=== PATIENT | male | born 1960 | race Caucasian/White ===

== ENCOUNTER → 2017-05-30 | Outpatient (CLI) | payer OTHER ==
[~2017-05-30] MED LIST: AMLO5TAB2 PO; ASPI-496 PO; ATOR40TA78 PO; CARV6.2512 PO; CARV6.252 PO; EZET10TA18 PO; GLUC1CAP48 PO; LOSA50TA6 PO; METF500T4 PO; MULT-412 PO; NAPR500T4 PO; NIAC250T7 PO; OMEP-110 PO; OMEP40CA6 PO; PHEN30CA3 PO; RIVA20TA PO; TICA90TA PO; [UNRECOGNIZED DRUG - OTHER] PO
== END ==
LOC: CVU 14:34
PROVIDERS: ATTEND Internal Medicine Cardiovascular Disease
DX: I08.3 Combined rheumatic disorders of mitral, aortic and tricuspid valves (principal); I10 Essential (primary) hypertension; I25.10 Atherosclerotic heart disease of native coronary artery without angina pectoris; Z95.0 Presence of cardiac pacemaker
CPT/HCPCS: 93306

== ENCOUNTER → 2017-08-29 | Outpatient (CLI) | payer OTHER ==
[~2017-08-29] MED LIST changes: +NAPR-685 PO; -NAPR500T4 PO; +REGADENOSON 0.4 MG/5 ML SYRINGE ONE
== END ==
LOC: RAD 07:22
PROVIDERS: ATTEND Internal Medicine Cardiovascular Disease
DX: I25.5 Ischemic cardiomyopathy (principal); I25.10 Atherosclerotic heart disease of native coronary artery without angina pectoris; I48.0 Paroxysmal atrial fibrillation
CPT/HCPCS: 78452; 93017; A9502; J2785

== ENCOUNTER 2019-04-18 05:40 | Day surgery (SDC) | payer OTHER ==
[~2019-04-18] VITALS: Ht 185.4 cm; Wt 147.7 kg
[~2019-04-18 05:40] MED LIST changes: +AMLO-150 PO; -AMLO5TAB2 PO; -EZET10TA18 PO; +EZET10TA70 PO; +LOSA50TA14 PO; -LOSA50TA6 PO; +METF500T17 PO; -METF500T4 PO; +OMEP40CA42 PO; -OMEP40CA6 PO; -REGADENOSON 0.4 MG/5 ML SYRINGE ONE
[2019-04-18] MEDS ORDERED: SODIUM CHLORIDE 0.9% 500 ML IV PRN (06:14)
[2019-04-18 06:23] VITALS: BP 116/72
[2019-04-18] MEDS ORDERED: CARV12.52 PO (06:37)
[2019-04-18] MEDS ORDERED: MULT-658 PO (06:42)
[2019-04-18] MEDS ORDERED: FEXO1TAB25 PO (06:42)
[2019-04-18] MEDS ORDERED: TRAM50TA2 PO (06:42)
[2019-04-18 07:04] LABS: ANION GAP 5 mmol/L (5-15); CALCIUM 8.9 mg/dL (8.5-10.1); CHLORIDE 109 mmol/L (98-107)
[2019-04-18] MEDS ORDERED: PROPOFOL 10 MG/ML, 20ML ONE (07:54)
== END 2019-04-18 13:16 | disposition home or self-care (01) ==
LOC: CACL 05:40
PROVIDERS: ATTEND Internal Medicine Cardiovascular Disease
DX: I48.91 Unspecified atrial fibrillation (principal); I48.0 Paroxysmal atrial fibrillation; E11.9 Type 2 diabetes mellitus without complications; I10 Essential (primary) hypertension; I25.10 Atherosclerotic heart disease of native coronary artery without angina pectoris; E78.2 Mixed hyperlipidemia; I49.5 Sick sinus syndrome; E66.01 Morbid (severe) obesity due to excess calories; Z68.41 Body mass index [BMI] 40.0-44.9, adult; Z79.82 Long term (current) use of aspirin; Z79.01 Long term (current) use of anticoagulants; Z95.0 Presence of cardiac pacemaker; Z79.84 Long term (current) use of oral hypoglycemic drugs
CPT/HCPCS: 36415; 80048; 92960; 93005; J2704

== ENCOUNTER 2019-05-30 05:44 | Day surgery (SDC) | payer OTHER ==
[~2019-05-30] VITALS: Ht 185.4 cm; Wt 147.7 kg
[~2019-05-30 05:44] MED LIST changes: +CARV12.52 PO; +FEXO1TAB25 PO; +MULT-658 PO; +TRAM50TA2 PO
[2019-05-30 06:34] VITALS: BP 104/67
[2019-05-30] MEDS ORDERED: DRON400T PO (06:43)
[2019-05-30] MEDS ORDERED: CHOL2000 PO (06:43)
[2019-05-30 07:16] LABS: ANION GAP 6 mmol/L (5-15); CALCIUM 8.8 mg/dL (8.5-10.1); CHLORIDE 111 mmol/L (98-107); CREATININE 1.13 mg/dL (0.7-1.3)
== END 2019-05-30 09:13 | disposition home or self-care (01) ==
LOC: CACL 05:44
PROVIDERS: ATTEND Internal Medicine Cardiovascular Disease
DX: I48.91 Unspecified atrial fibrillation (principal); E11.9 Type 2 diabetes mellitus without complications; I10 Essential (primary) hypertension; E78.2 Mixed hyperlipidemia; I25.10 Atherosclerotic heart disease of native coronary artery without angina pectoris; I49.5 Sick sinus syndrome; E66.01 Morbid (severe) obesity due to excess calories; Z68.41 Body mass index [BMI] 40.0-44.9, adult; Z79.82 Long term (current) use of aspirin; Z79.01 Long term (current) use of anticoagulants; Z95.0 Presence of cardiac pacemaker; Z79.84 Long term (current) use of oral hypoglycemic drugs
CPT/HCPCS: 36415; 80048; 92960

== ENCOUNTER → 2019-06-17 | Outpatient (CLI) | payer OTHER ==
[~2019-06-17] MED LIST changes: +CHOL2000 PO; +DRON400T PO; +REGADENOSON 0.4 MG/5 ML SYRINGE ONE
== END | disposition home or self-care (01) ==
LOC: CVU 08:06
PROVIDERS: ATTEND Physician Assistant Medical
DX: I08.3 Combined rheumatic disorders of mitral, aortic and tricuspid valves (principal); R07.9 Chest pain, unspecified; I48.91 Unspecified atrial fibrillation; Z95.0 Presence of cardiac pacemaker
CPT/HCPCS: 78452; 93017; 93306; A9502; J2785

== ENCOUNTER 2019-07-07 11:08 | Day surgery (SDC) | payer OTHER ==
[~2019-07-07] VITALS: Ht 185.4 cm; Wt 152.0 kg
[~2019-07-07 11:08] MED LIST changes: -REGADENOSON 0.4 MG/5 ML SYRINGE ONE; +SODIUM CHLORIDE 0.9% 1,000 ML IV SCH
[2019-07-07] MEDS ORDERED: EVOL140S2 SQ (12:10)
[2019-07-07 12:17] VITALS: BP 116/72
[2019-07-07] MEDS ORDERED: MIDAZOLAM 1 MG/ML, 5ML ONE (13:01)
[2019-07-07] MEDS ORDERED: HEPARIN 1,000 UNITS/ML, 10ML ONE (13:02)
[2019-07-07] MEDS ORDERED: BIVALIRUDIN 250 MG ONE ×2 (13:02→13:39)
[2019-07-07] MEDS ORDERED: VERAPAMIL 2.5 MG/ML, 2ML ONE (13:02)
[2019-07-07] MEDS ORDERED: FENTANYL PF 100 MCG/2ML ONE (13:02)
[2019-07-07] MEDS ORDERED: TICAGRELOR 90 MG TABLET ONE (13:02)
[2019-07-07] MEDS ORDERED: LIDOCAINE-MPF 1%, 5ML ONE (13:02)
[2019-07-07] MEDS ORDERED: SODIUM CHLORIDE 0.9% 1,000 ML IV SCH (14:05)
== END 2019-07-07 15:30 | disposition home or self-care (01) ==
LOC: CACL 11:08
PROVIDERS: ATTEND Internal Medicine Cardiovascular Disease
DX: I25.118 Atherosclerotic heart disease of native coronary artery with other forms of angina pectoris (principal); I48.0 Paroxysmal atrial fibrillation; I10 Essential (primary) hypertension; E11.9 Type 2 diabetes mellitus without complications; E78.2 Mixed hyperlipidemia; G47.33 Obstructive sleep apnea (adult) (pediatric); K21.9 Gastro-esophageal reflux disease without esophagitis; E66.01 Morbid (severe) obesity due to excess calories; Z68.41 Body mass index [BMI] 40.0-44.9, adult; Z79.82 Long term (current) use of aspirin; Z79.01 Long term (current) use of anticoagulants; Z79.84 Long term (current) use of oral hypoglycemic drugs; Z79.891 Long term (current) use of opiate analgesic; Z79.899 Other long term (current) drug therapy; Z91.048 Other nonmedicinal substance allergy status; Z95.0 Presence of cardiac pacemaker; Z95.5 Presence of coronary angioplasty implant and graft; Z82.49 Family history of ischemic heart disease and other diseases of the circulatory system; Z82.3 Family history of stroke
CPT/HCPCS: 71046; 93458; 99156; C1769; C1894; J1644; J2250; J3010; Q9967; J0583

== ENCOUNTER 2019-11-03 12:42 | Outpatient (CLI) | payer OTHER ==
[~2019-11-03 12:42] MED LIST changes: +EVOL140S2 SQ; +REGADENOSON 0.4 MG/5 ML SYRINGE ONE; -SODIUM CHLORIDE 0.9% 1,000 ML IV SCH
== END 2019-11-03 23:59 | disposition home or self-care (01) ==
LOC: CFH 12:42
PROVIDERS: ATTEND Internal Medicine Cardiovascular Disease
DX: I48.0 Paroxysmal atrial fibrillation (principal); I25.10 Atherosclerotic heart disease of native coronary artery without angina pectoris; I10 Essential (primary) hypertension
CPT/HCPCS: 78452; 93017; A9502; J2785

== ENCOUNTER → 2019-12-16 | Outpatient (CLI) | payer OTHER ==
[~2019-12-16] MED LIST changes: -REGADENOSON 0.4 MG/5 ML SYRINGE ONE
== END | disposition home or self-care (01) ==
LOC: CFH 07:45
PROVIDERS: ATTEND Thoracic Surgery (Cardiothoracic Vascular Surgery)
DX: I25.10 Atherosclerotic heart disease of native coronary artery without angina pectoris (principal); I48.19 Other persistent atrial fibrillation; J90 Pleural effusion, not elsewhere classified
CPT/HCPCS: 71046

== ENCOUNTER 2020-01-07 06:14 | Observation (INO) | payer OTHER ==
[~2020-01-07] VITALS: Ht 185.4 cm; Wt 148.2 kg
[2020-01-07] MEDS ORDERED: SODIUM CHLORIDE 0.9% 1,000 ML IV SCH (06:23)
[2020-01-07 06:32] VITALS: BP 102/65
[2020-01-07] MEDS ORDERED: ASPI81TA45 PO (06:40)
[2020-01-07] MEDS ORDERED: LACT1CAP35 PO (06:42)
[2020-01-07 07:17] LABS: BASOPHILS # (AUTO) 0.04 x10^3/uL (0-0.1); BASOPHILS % (AUTO) 1 % (0-1); EOSINOPHILS % (AUTO) 3 % (1-7); LYMPHOCYTES # (AUTO) 1.46 x10^3/uL (1-3.4); LYMPHOCYTES % (AUTO) 22 % (22-44); MD NO; MEAN CORPUSCULAR HGB CONC 32.4 g/dL (33.2-36.2); MEAN CORPUSCULAR VOLUME 95.7 fL (81-97); MONOCYTES # (AUTO) 0.54 x10^3/uL (0.2-0.8); MONOCYTES % (AUTO) 8 % (2-9); NEUTROPHILS # (AUTO) 4.51 x10^3/uL (1.8-6.8); NEUTROPHILS % (AUTO) 67 % (42-75); PLATELET COUNT 248 x10^3/uL (130-400); RED BLOOD COUNT 3.99 x10^6/uL (4.38-5.82); RED CELL DISTRIBUTION WIDTH 14.2 % (9.4-14.8)
[2020-01-07 07:35] LABS: ANION GAP 8 mmol/L (5-15); CALCIUM 8.7 mg/dL (8.5-10.1); CHLORIDE 112 mmol/L (98-107); CREATININE 1.22 mg/dL (0.7-1.3)
[2020-01-07] MEDS ORDERED: MIDAZOLAM 1 MG/ML, 2ML ONE (08:03)
[2020-01-07] MEDS ORDERED: PROPOFOL 50 ML ONE (08:03)
[2020-01-07] MEDS ORDERED: FENTANYL PF 250 MCG/5ML ONE (08:04)
[2020-01-07] MEDS ORDERED: DEXAMETHASONE 4 MG/ML, 1ML ONE (08:19)
[2020-01-07] MEDS ORDERED: ONDANSETRON 2MG/ML, 2ML ONE ×2 (08:19→09:59)
[2020-01-07] MEDS ORDERED: LIDOCAINE 1%, 20ML ONE (08:23)
[2020-01-07] MEDS ORDERED: HEPARIN 1,000 UNITS/ML, 10ML ONE ×3 (09:48)
[2020-01-07] MEDS ORDERED: ROCURONIUM 10MG/ML,5ML ONE (09:58)
[2020-01-07] MEDS ORDERED: SUCCINYLCHOLINE 20 MG/ML, 10ML ONE (09:59)
[2020-01-07] MEDS ORDERED: DIPHENHYDRAMINE 50 MG/ML, 1ML IVPush PRN (10:30)
[2020-01-07] MEDS ORDERED: EPHEDRINE 50 MG/ML, 1ML IVPush PRN (10:30)
[2020-01-07] MEDS ORDERED: OXYcodone 5 MG/5 ML ORAL.SOL UDC PO PRN (10:30)
[2020-01-07] MEDS ORDERED: ONDANSETRON 2MG/ML, 2ML IVPush PRN (10:30)
[2020-01-07] MEDS ORDERED: FENTANYL PF 100 MCG/2ML IV PRN (10:30)
[2020-01-07] MEDS ORDERED: TEMPLATE NON-FORMULARY MED. (Gluc 2KCL/Chondr/Coll Hy/Hy Ac** (Glucosamine & Chondroitin C PO SCH (10:30)
[2020-01-07] MEDS ORDERED: HYDROmorphone 1 MG/ML, 1ML INJ IVPush PRN (10:30)
[2020-01-07] MEDS ORDERED: TEMPLATE NON-FORMULARY MED. (Fexofenadine/Pseudoephedrine (Allegra-D 12 Hour Tablet**) 1 T PO PRN (10:30)
[2020-01-07] MEDS ORDERED: DIAZEPAM 5 MG/ML, 2ML IVPush PRN (10:30)
[2020-01-07] MEDS ORDERED: MEPERIDINE/PF 25MG/0.5ML IVPush PRN (10:30)
[2020-01-07] MEDS ORDERED: hydrALAzine 20 MG/ML, 1ML IV PRN (10:30)
[2020-01-07] MEDS ORDERED: METOPROLOL 1 MG/ML, 5ML IV PRN (10:30)
[2020-01-07] MEDS ORDERED: PROMETHAZINE 25 MG/ML, 1ML IVPush PRN (10:30)
[2020-01-07] MEDS ORDERED: EPHEDRINE 50 MG/ML, 1ML IM PRN (10:30)
[2020-01-07] MEDS: RIVAROXABAN 20 MG TABLET PO SCH (11:13)
[2020-01-07 17:08] VITALS: BP 127/77
[2020-01-07] MEDS: metFORMIN 500 MG TABLET PO SCH (17:51)
[2020-01-07 20:08] VITALS: BP 115/73
[2020-01-07] MEDS: CARVEDILOL 25 MG TABLET PO SCH (20:12)
[2020-01-07] MEDS ORDERED: metFORMIN 500 MG TABLET PO SCH (21:00)
[2020-01-07] MEDS ORDERED: ATORVASTATIN 80 MG TABLET PO SCH (21:00)
[2020-01-07] MEDS ORDERED: RIVAROXABAN 20 MG TABLET PO SCH (21:00)
[2020-01-08 01:07] VITALS: BP 104/64
[2020-01-08] MEDS ORDERED: OMEPRAZOLE 20 MG CAPSULE.DR PO SCH (06:00)
[2020-01-08 06:41] VITALS: BP 118/71
[2020-01-08] MEDS: metFORMIN 500 MG TABLET PO SCH (08:34)
[2020-01-08] MEDS: RIVAROXABAN 20 MG TABLET PO SCH (08:35)
[2020-01-08] MEDS: CARVEDILOL 25 MG TABLET PO SCH (08:36)
[2020-01-08] MEDS ORDERED: ASPIRIN 81 MG TABLET EC PO SCH (09:00)
[2020-01-08] MEDS ORDERED: EZETIMIBE 10 MG TABLET PO SCH (09:00)
[2020-01-08] MEDS ORDERED: MULTIVITAMIN 1 TABLET PO SCH (09:00)
[2020-01-08] MEDS ORDERED: LACTOBACILLUS CHEW TABLET PO SCH (09:00)
[2020-01-08] MEDS ORDERED: LOSARTAN 100 MG TAB PO SCH (09:00)
[2020-01-08] MEDS ORDERED: CHOLECALCIFEROL 1,000 UNIT TABLET PO SCH (09:00)
[2020-01-13] MEDS ORDERED: EVOLOCUMAB SQ SCH (09:00)
== END 2020-01-08 12:39 | disposition home or self-care (01) ==
LOC: CACL 06:14 → ORIP 10:19 → 5SO 14:47 → DCLOUNGE 01-08 12:27
PROVIDERS: ADMIT Internal Medicine Cardiovascular Disease; ATTEND Internal Medicine Cardiovascular Disease
DX: Z03.818 Encounter for observation for suspected exposure to other biological agents ruled out (principal); I48.91 Unspecified atrial fibrillation; I48.92 Unspecified atrial flutter; I10 Essential (primary) hypertension; E11.9 Type 2 diabetes mellitus without complications
CPT/HCPCS: 36415; 80048; 85025; 85347; 87635; 93306; 93462; 93613; 93621; 93653; 93662; C1730; C1732; C1759; C1766; C1769; C1893; C1894; G0378; J0330; J1100; J1644; J2250; J2405; J2704; J3010; J3490